=== PATIENT | female | born 1935 | race Caucasian/White ===

== ENCOUNTER → 2021-04-27 11:19 | Outpatient (CLI) | payer MEDICARE, SELFPAY ==
--- NOTE | 2021-04-27 11:27 | DI.MRI.S_ITS ---
PROCEDURE: MRFOOT LT WO CON INDICATIONS: LEFT FOOT PAIN TECHNIQUE: Noncontrast sagittal T1 spin echo and T2 fast spin echo with fat saturation, long-axis T1 spin echo and T2 fast spin echo with fat saturation, short-axis T1 spin echo and T2 fast spin echo with fat saturation through the forefoot. COMPARISON: None. FINDINGS: Image quality: Excellent. Bones and joints: A 1.1 x 1.6 cm T2 hyperintense/T1 hypointense lesion is seen within the proximal aspect of the 1st metatarsal, which may reflect an intraosseous ganglion or fibrocystic change. Mild hallux valgus with osteophytosis and joint space loss. No bone marrow contusions or stress fractures. The sesamoid bones appear in expected positions, without internal edema. 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 Soft tissues: The visualized plantar foot muscles demonstrate normal signal and bulk. T2 hyperintense signal surrounds the flexor hallucis longus tendon, concerning for tenosynovitis. The distal insertions of the peroneus brevis and longus tendons appear intact. The principal Lisfranc ligament appears intact. T2 hyperintense signal is seen between the 1st and 2nd metatarsal bases, which may reflect bursitis. Sagittal images demonstrate no evidence for plantar plate tears. IMPRESSION: 1. 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 2. Fluid signal interposed between the 1st and 2nd metatarsal bases, which may reflect bursitis 3. Cystic lesion in the proximal aspect of the 1st metatarsal bone, which may reflect an intraosseous ganglion or fibrocystic change. 4. Tenosynovitis of the flexor hallucis longus tendon. Dictated by: Galen Garsia M.D. on 04/27/2021 at 12:17 Approved by: Galen Garsia M.D. on 04/27/2021 at 12:53
== END ==
PROVIDERS: PCP Family Medicine; Referring Provider Podiatrist; Visit Provider Podiatrist
DX: M65.872 Other synovitis and tenosynovitis, left ankle and foot; M19.072 Primary osteoarthritis, left ankle and foot; M76.822 Posterior tibial tendinitis, left leg
CPT/HCPCS: 73718

== ENCOUNTER → 2023-06-26 14:40 | Outpatient (CLI) | payer MEDICARE, SELFPAY ==
--- NOTE | 2023-06-26 14:45 | DI.ECHO.S_ITS ---
[facility]+ [facility] +---------+ : : [address] : : : : [id number] : : : : Phone: [phone] Echocardiogram Report + + :Name: TROY QUIROZ Study Date: 06/26/2023 Height: 62 in : :[facility] ReadingLocation: Weight: 146 lb : : Gender: Female BSA: 1.7 m2 : :: 1935 Age: 88 yrs BP: 136/79 mmHg: :Reason For Study: MURMUR, EKG RESULTS : :Ordering Physician: Jose MCCULLOUGHformed By: Brianne Roger : :Referring: VITO MCCULLOUGH : + + Interpretation Summary The left ventricle is normal in size and wall thickness. The ejection fraction is estimated to be 60-65%. There is moderate aortic stenosis. The peak aortic velocity is 2.8 m/sec. The calculated aortic valve area is 0.85 cm2. There is moderate mitral annular calcification. The mitral valve mean gradient is 4.8 mmHg. There is mild mitral regurgitation. Procedure: A two-dimensional transthoracic echocardiogram with color flow and Doppler was performed. The study quality was technically adequate. There is no prior echocardiogram noted for this patient. The patient was in sinus rhythm with heart rates between 72-88 bpm during the exam. Left Ventricle: The left ventricle is normal in size and wall thickness. The ejection fraction is estimated to be 60-65%. There are no focal wall motion abnormalities. Right Ventricle: The right ventricle is normal in size and function. Atria: The left atrial size is normal. Right atrial size is normal. There is no Doppler evidence for an interatrial shunt. Mitral Valve: There is moderate mitral annular calcification. The mitral valve leaflets are moderately calcified. The mitral valve mean gradient is 4.8 mmHg. There is mild mitral regurgitation. There are multiple regurgitant jets present. Aortic Valve: The aortic valve is trileaflet. The aortic valve is moderately calcified. There is moderate aortic stenosis. The peak aortic velocity is 2.8 m/sec. The aortic valve mean gradient is 19 mmHg. The calculated aortic valve area is 0.85 cm2. No aortic regurgitation is present. Tricuspid Valve: The tricuspid valve is normal in structure and function. No tricuspid regurgitation. Pulmonary artery pressures cannot be estimated because of the lack of a measurable TR jet velocity. Pulmonic Valve: The pulmonic valve leaflets are thin and pliable; valve motion is normal. There is mild pulmonic regurgitation. Great Vessels: The aortic root is normal size. The dimensions of the ascending aorta are normal. The IVC is of normal diameter and collapses greater than 50% with a sniff. This suggests a low right atrial pressure of 3 mm Hg. Pericardium/ Pleura There is no pericardial effusion. There is no pleural effusion. MMode/2D Measurements & Calculations LVIDd: 3.8 cm LVOT diam: 1.9 cm LVIDs: 2.8 cm Ao root diam: 2.8 cm FS: 27.2 % asc Aorta Diam: 2.8 cm IVSd: 0.98 cm Ao Arch Diam (Prox Trans): 2.8 cm LVPWd: 0.86 cm LV chiang. diameter/BSA (cm/m^2): 2.3 LV sys. diameter/BSA (cm/m^2): 1.6 LA A2 area: 16.6 cm2 RA long axis: 4.6 cm LA A4 area: 15.2 cm2 RA area: 12.4 cm2 LA length (vol): 4.8 cm RA vol: 28.0 ml LA vol: 44.6 ml RA : 16.7 ml/m2 LA vol index: 26.7 ml/m2 IVC diam: 1.1 cm RVD1 (basal): 3.1 cm RVD2 (mid): 2.6 cm TAPSE: 2.0 cm Doppler Measurements & Calculations Ao V2 max: 282.7 cm/sec LVOT Max Michael: 85.2 cm/sec Ao V2 mean: 202.4 cm/sec LV V1 max P.9 mmHg Ao max P.6 mmHg LV V1 VTI: 19.0 cm Ao mean P.2 mmHg VERONICA(I,D): 0.89 cm2 Ao V2 VTI: 59.6 cm VERONICA(V,D): 0.85 cm2 sev ratio: 0.32 VERONICA indexed to BSA (cm^2/m^2): 0.53 MV E max michael: 125.6 cm/sec PA V2 max: 91.3 cm/sec MV A max michael: 127.2 cm/sec PA V2 mean: 68.2 cm/sec MV E/A: 0.99 PA mean P.0 mmHg Med Peak E' Michael: 5.3 cm/sec PA pr(Accel): 44.7 mmHg E/E' med: 23.6 Lat Peak E' Michael: 5.9 cm/sec E/E' lat: 21.3 E/e' average: 22.4 MV dec time: 0.37 sec MVA(VTI): 1.1 cm2 MV V2 mean: 99.4 cm/sec SV(LVOT): 53.3 ml MV mean P.8 mmHg MV V2 VTI: 50.4 cm Electronically signed by: Cristina Hernandez on Reading Physician:06/26/2023 07:59 PM
== END ==
PROVIDERS: PCP Family Medicine; Referring Provider Family Medicine; Visit Provider Family Medicine
DX: R01.1 Cardiac murmur, unspecified (principal); I08.0 Rheumatic disorders of both mitral and aortic valves
CPT/HCPCS: 93306

== ENCOUNTER 2023-08-03 16:27 | Observation (INO) | payer MEDICARE, SELFPAY ==
[2023-08-03] VITALS (11 sets, daily range): BP systolic 139–207; BP diastolic 64–99; PULSE 67–91; RESP 11–49; TEMP 36.1–36.7; O2SAT 91–100; BMI 25.9
--- NOTE | 2023-08-03 16:47 | DI.RAD.S_ITS ---
PROCEDURE: XR CHEST 1V INDICATIONS: chest pain TECHNIQUE: One view of the chest was acquired. COMPARISON: None. FINDINGS: Surgical changes and devices: None. Lungs and pleura: Lungs are clear. No pleural effusions or pneumothorax. Mediastinum: Mediastinal contours appear normal. Heart size is normal. Bones and chest wall: No suspicious bony lesions. Overlying soft tissues appear unremarkable. IMPRESSION: No acute cardiopulmonary abnormality is seen. Dictated by: Gildardo Kim M.D. on 08/03/2023 at 17:15 Approved by: Gildardo Kim M.D. on 08/03/2023 at 17:15
--- NOTE | 2023-08-03 16:55 | PC.NURSE ---
This RN was informed by patient that they took 650mg Aspirin at 1pm today. Provider informed. This medication was held per provider order.
--- NOTE | 2023-08-03 16:55 | ED.NEUROSD ---
HPI - Neuro Symptoms/Deficit General Chief Complaint: Neuro Symptoms/Deficit Stated Complaint: thinks has had some tia's Time Seen by Provider: 08/03/23 16:37 Source: patient and family Mode of arrival: Ambulatory History of Present Illness HPI Narrative: Patient is a 88-year-old female history of hypothyroid, diabetes presenting today with difficulty speaking. states that last known well was around 10:00 a.m. he had a normal breakfast he went outside came back in at noon and noted that she was having some trouble getting words out. It lasted for about 30 minutes to an hour and then self-resolved. No numbness tingling or weakness. 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 She reports that she had an episode very similar to this 2 weeks ago where she had word trouble finding. She was on the phone at that time and at lasted for about half a day and then resolved. They are here today because this is the 2nd event. On Anticoagulants: No Related Data Home Medications Medication Instructions Recorded Confirmed levothyroxine 112 mcg tablet 112 mcg PO DAILY 06/05/23 08/03/23 losartan 50 mg tablet 50 mg PO DAILY 06/05/23 08/03/23 metformin 500 mg tablet 500 mg PO BID 06/05/23 08/03/23 Previous Rx's Medication Instructions Recorded hydrochlorothiazide 12.5 mg tablet 12.5 mg PO DAILY #90 tabs 06/05/23 Allergies Allergy/AdvReac Type Severity Reaction Status Date / Time Penicillins Allergy Severe Anaphylaxis Verified 08/03/23 16:42 codeine AdvReac Severe GI upset, Verified 08/03/23 16:42 nausea, vomiting Review of Systems Hematologic/Lymphatic On Anticoagulants: No Patient History Social History household members: spouse Smoking Status: Never smoker alcohol intake: current substance use type: does not use Smoking Status: Never smoker alcohol intake frequency: a few times a month Substance Use Type: does not use Exam Initial Vital Signs Initial Vital Signs: Vital Signs Pulse Rate 83 08/03/23 16:36 Respiratory Rate 18 08/03/23 16:36 Pulse Oximetry 100 08/03/23 16:36 GENERAL: Very pleasant 80-year-old female HEENT: Head atraumatic,EOMI, pupils reactive, left-sided facial droop CARDIOVASCULAR: Regular rate and rhythm without murmurs, rubs or gallops. RESPIRATORY: Breath sounds equal bilaterally, no wheezes rales or rhonchi. ABDOMEN: Soft, nontender. Normoactive bowel sounds all 4 quadrants. No guarding or rebound. EXTREMITIES: Normal range of motion, no clubbing or edema. Neurovascularly intact NEUROLOGICAL: Alert and oriented x4.Normal gait and speech. Cranial nerves II through XII grossly intact. Good xencvz-[id number]-dunr, good pcze-eu-ldkr, strength equal bilaterally, no dysarthria or aphasia, sensation in tact to soft touch bilaterally, no visual changes, left facial droop SKIN: Warm, dry, no laceration, no petechiae, no rashes or lesions. Scores NIH Stroke Scale Level of Conciousness: Alert, keenly responsive Ask month/age: Answers both questions correctly. Open/close eyes, close hand: Performs both tasks correctly Best gaze horizontal: Normal Visual hood: No visual loss Facial palsy: Minor paralysis, flattened nasolabial fold, asymmetry on smiling Left arm drift: No drift for full 10 sec Right arm drift: No drift for full 10 sec Left leg drift: No drift for full 5 sec Right leg drift: No drift for full 5 sec Limb ataxia: Absent Sensory on face/arms/legs: Normal, no sensory loss Best language: No aphasia, normal Dysarthria: Normal Extinction or inattention: No abnormality Total NIH Stroke scale score: 1 Course Orders Ordered: Acetaminophen (Acetaminophen 650 Mg Supp) 650 mg SD Q6HR PRN PRN Reason: Fever Aspirin (Aspirin Ec 81 Mg Tablet) 81 mg PO DAILY [facility] Atorvastatin Calcium (Atorvastatin 20 Mg Tablet) 80 mg PO BEDTIME [facility] Last Admin: 08/03/23 23:38 Dose: 80 mg Documented By: Enoxaparin Sodium (Enoxaparin 40 Mg/0.4 Ml Syringe) 40 mg SUBCUT DAILY [facility] Dextrose (D10w) 100 mls @ 1,200 mls/hr IV PRN PRN PRN Reason: Hypoglycemia Insulin Human Lispro (Insulin Lispro 100 Unit/Ml 3ml Vial) 0 unit SUBCUT ACHS [facility]; Protocol Last Admin: 08/03/23 22:36 Dose: Not Given Documented By: Labetalol HCl (Labetalol 20 Mg/4 Ml Syringe) 5 mg IV Q4HR PRN PRN Reason: Hypertension Lorazepam (Lorazepam 1 Mg Tablet) 1 mg PO PRN PRN PRN Reason: MRI Naloxone HCl (Naloxone 0.4 Mg/Ml Vial) 0.2 mg IV Q2MIN PRN PRN Reason: Opiate Reversal Ondansetron HCl (Ondansetron 4 Mg/2 Ml Inj) 4 mg IV Q8HR PRN PRN Reason: Nausea And Vomiting Discontinued Medications Aspirin (Aspirin 81 Mg Chew Tab) 324 mg PO NOW ONE Stop: 08/03/23 16:47 Last Admin: 08/03/23 16:54 Dose: Not Given Documented By: RB Vital Signs Vital signs: Vital Signs - 8 hr 08/03/23 16:36 08/03/23 16:37 Temperature 98.1 F Pulse Rate 83 91 H Respiratory Rate 18 18 Blood Pressure 207/73 H Pulse Oximetry 100 100 Oxygen Delivery Method Room Air MDM - Neuro Symptoms/Deficit Lab Data 08/03/23 20:27 08/03/23 20:27 Labs: Lab Results 08/03/23 Range/Units 16:31 WBC 8.8 (4.5-11.0) X10^3/uL RBC 4.35 (4.0-5.2) X10^6/uL Hgb 12.5 (12.0-16.0) g/dL Hct 38.2 (36-46) % MCV 87.9 (80-100) fL MCH 28.8 (26-34) PG MCHC 32.8 (30-36) % RDW 13.2 (11.6-14.8) % Plt Count 373 (150-400) X10^3/uL Neut % (Auto) 56.8 (50-75) % Lymph % (Auto) 23.7 L (25-40) % Bibb % (Auto) 12.6 (3-14) % Eos % (Auto) 5.7 H (2-4) % Baso % (Auto) 1.2 (0-2) % Neut # (Auto) 5000 (5396-3405) /uL Lymph # (Auto) 2100 (1949-1449) /uL Bibb # (Auto) 1100 H (0-900) /uL Eos # (Auto) 500 H (0-450) /uL Baso # (Auto) 100 (0-100) /uL Sodium 137 (137-145) mmol/L Potassium 3.8 (3.4-5.1) mmol/L Chloride 101 (98-107) mmol/L Carbon Dioxide 28 (22-32) mmol/L BUN 19 H (7-17) mg/dL Creatinine 0.71 (0.52-1.04) mg/dL Estimated GFR > 60 (>60) mL/min BUN/Creatinine Ratio 26.8 H (6-22) Glucose 149 H (80-110) mg/dL Calcium 10.0 (8.4-10.2) mg/dL Total Bilirubin 0.4 (0.2-1.3) mg/dL AST 41 H (14-36) IU/L ALT 43 H (<35) IU/L Alkaline Phosphatase 68 (38-126) U/L Total Creatine Kinase 40 (30-135) U/L Troponin I < 0.012 (0.01-0.034) ng/mL Total Protein 7.6 (6.3-8.2) g/dL Albumin 4.0 (3.5-5.0) g/dL Globulin 3.6 (1.7-4.1) g/dL Albumin/Globulin Ratio 1.1 (1.0-2.8) Lipase 197 (23-300) U/L Imaging Data CT scan - head: Radiologist's Impression: PROCEDURE: CT HEAD/BRAIN WO CON INDICATIONS: word trouble now resolved TECHNIQUE: Noncontrast 4.5 mm thick angled axial sections acquired from the foramen magnum to the vertex, with coronal and sagittal reformats. For radiation dose reduction, the following was used: automated exposure control, adjustment of mA and/or kV according to patient size. COMPARISON: None. FINDINGS: Image quality: Diagnostic. CSF spaces: Basal cisterns are patent. No extra-axial fluid collections. The ventricles are symmetric in size and shape. Brain: No intracranial bleeds or masses. There is cerebral volume loss for age, with resultant ventricular and sulcal prominence. There are periventricular and deep white matter chronic small vessel ischemic changes. There is intracranial internal carotid artery atherosclerosis. Skull and face: Calvarium and visualized facial bones appear intact, without suspicious lesions. Lens replacements. Sinuses: Visualized sinuses and mastoids are clear. IMPRESSION: No acute intracranial pathology. Dictated by: Gildardo Kim M.D. on 08/03/2023 at 18:22 CTA - brain/neck: Radiologist's Impression: PROCEDURE: CT ANGIO HEAD AND NECK INDICATIONS: word trouble now resolved TECHNIQUE: After the administration of intravenous contrast, 1 mm thick sections acquired from the aortic arch through the [place] of [place]. 3-dimensional liwewxt-vyzrekfik-qpympghkyr (MIP) and/or volume rendering reformats were acquired of the central intracranial vasculature and neck separately. For radiation dose reduction, the following was used: automated exposure control, adjustment of mA and/or kV according to patient size. COMPARISON: None. FINDINGS: Image quality: Diagnostic. BRAIN: Please refer to separately dictated CT of the head. HEAD CT ANGIOGRAPHY: Anterior circulation: Intracranial internal carotid arteries are normal in size and flow with atherosclerotic calcifications. The flow within the paired anterior cerebral arteries is normal and symmetric. The flow within the middle cerebral arteries is normal and symmetric. The anterior communicating artery is seen. No aneurysms are seen. Posterior circulation: Visualized portions of the vertebral arteries demonstrate normal caliber, and join to form a normal appearing basilar artery. Flow within the posterior cerebral arteries is normal and symmetric. No aneurysms are seen. NECK CT ANGIOGRAPHY: Carotid system: The great vessels demonstrate a conventional anatomy as they arise from the aortic arch. The origins of the common carotid arteries appear patent. The common carotid arteries demonstrate normal caliber with significantly tortuous course is approximately. Atherosclerotic calcifications of the bilateral carotid bifurcations with approximately 50% stenosis of the right proximal ICA and less than 50% stenosis of the left proximal ICA.. The internal carotid arteries demonstrate normal calibers and courses. Posterior circulation: High-grade stenosis of the origin of left vertebral artery. Normal appearance of the origin of the right vertebral artery.. The more superior extracranial portions of both vertebral arteries also demonstrate normal courses and calibers. They join to form a normal appearing basilar artery. Soft tissues: Visualized neck soft tissues demonstrate no suspicious abnormalities. Bones: No suspicious bony lesions. Degenerative changes of the spine. Visualized cervical spine appears normally aligned. IMPRESSION: No significant intracranial arterial abnormality is seen. Atherosclerotic vascular calcifications at the bilateral carotid bulbs with approximately 50% stenosis of the right proximal ICA and less than 50% stenosis of the left proximal ICA. High-grade stenosis at the left vertebral artery origin. Any quantitative measurements of stenosis were performed using NASCET criteria. Dictated by: Gildardo Kim M.D. on 08/03/2023 at 18:23 Chest x-ray: Radiologist's Impression: PROCEDURE: XR CHEST 1V INDICATIONS: chest pain TECHNIQUE: One view of the chest was acquired. COMPARISON: None. FINDINGS: Surgical changes and devices: None. Lungs and pleura: Lungs are clear. No pleural effusions or pneumothorax. Mediastinum: Mediastinal contours appear normal. Heart size is normal. Bones and chest wall: No suspicious bony lesions. Overlying soft tissues appear unremarkable. IMPRESSION: No acute cardiopulmonary abnormality is seen. Dictated by: Gildardo Kim M.D. on 08/03/2023 at 17:15 ECG Data Interpretation: Normal sinus rhythm rate 79 SD interval 1 to see a QRS [address] changes MDM Narrative Medical decision making narrative: Patient 88-year-old female history of hypertension hypothyroid diabetes presents today with a 2nd event of probable TIA. It sounds as though she would speech difficulty 2 weeks ago that for half a day and resolved. She had 2nd episode today which again resolved. 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 He has not a tPA candidate symptoms have resolved. Blood work has been reviewed without clinical significant abnormalities Imaging pending Briefly discussed case with Dr. Maldonado in regards to admission waiting for CT imaging to be sure no large obvious problems Dr. Navarro aware Discharge Plan Departure Patient Disposition: Admitted as Observation Clinical Impression: Transient cerebral ischemia Admit Date/Time: 08/03/23 18:54 Admit Provider: Jaime Maldonado
[2023-08-03 17:01] LABS: Add Manual Diff / Slide Review NO; Basophils Absolute Auto 100 /uL (0-100); Basophils Percent Auto 1.2 % (0-2); Eosinophils Absolute Auto 500 /uL (0-450); Eosinophils Percent Auto 5.7 % (2-4); Hematocrit 38.2 % (36-46); Hemoglobin 12.5 g/dL (12.0-16.0); Lymphocytes Absolute Auto 2100 /uL (1100-4500); Lymphocytes Percent Auto 23.7 % (25-40); Mean Corpuscular HGB Conc 32.8 % (30-36); Mean Corpuscular Hemoglobin 28.8 PG (26-34); Mean Corpuscular Volume 87.9 fL (80-100); Monocytes Absolute Auto 1100 /uL (0-900); Monocytes Percent Auto 12.6 % (3-14); Neutrophils Absolute Auto 5000 /uL (1500-7000); Neutrophils Percent Auto 56.8 % (50-75); Platelet Count 373 X10^3/uL (150-400); Red Blood Cell Count 4.35 X10^6/uL (4.0-5.2); Red Cell Distribution Width 13.2 % (11.6-14.8); White Blood Cell Count 8.8 X10^3/uL (4.5-11.0)
--- NOTE | 2023-08-03 17:07 | DI.CT.S_ITS ---
PROCEDURE: CT HEAD/BRAIN WO CON INDICATIONS: word trouble now resolved TECHNIQUE: Noncontrast 4.5 mm thick angled axial sections acquired from the foramen magnum to the vertex, with coronal and sagittal reformats. For radiation dose reduction, the following was used: automated exposure control, adjustment of mA and/or kV according to patient size. COMPARISON: None. FINDINGS: Image quality: Diagnostic. CSF spaces: Basal cisterns are patent. No extra-axial fluid collections. The ventricles are symmetric in size and shape. Brain: No intracranial bleeds or masses. There is cerebral volume loss for age, with resultant ventricular and sulcal prominence. There are periventricular and deep white matter chronic small vessel ischemic changes. There is intracranial internal carotid artery atherosclerosis. Skull and face: Calvarium and visualized facial bones appear intact, without suspicious lesions. Lens replacements. Sinuses: Visualized sinuses and mastoids are clear. IMPRESSION: No acute intracranial pathology. Dictated by: Gildardo Kim M.D. on 08/03/2023 at 18:22 Approved by: Gildardo Kim M.D. on 08/03/2023 at 18:22
--- NOTE | 2023-08-03 17:07 | DI.CT.S_ITS ---
PROCEDURE: CT ANGIO HEAD AND NECK INDICATIONS: word trouble now resolved TECHNIQUE: After the administration of intravenous contrast, 1 mm thick sections acquired from the aortic arch through the [place] of [place]. 3-dimensional ubohzeg-dhtdtgkqd-mdotqugnzr (MIP) and/or volume rendering reformats were acquired of the central intracranial vasculature and neck separately. For radiation dose reduction, the following was used: automated exposure control, adjustment of mA and/or kV according to patient size. COMPARISON: None. FINDINGS: Image quality: Diagnostic. BRAIN: Please refer to separately dictated CT of the head. HEAD CT ANGIOGRAPHY: Anterior circulation: Intracranial internal carotid arteries are normal in size and flow with atherosclerotic calcifications. The flow within the paired anterior cerebral arteries is normal and symmetric. The flow within the middle cerebral arteries is normal and symmetric. The anterior communicating artery is seen. No aneurysms are seen. Posterior circulation: Visualized portions of the vertebral arteries demonstrate normal caliber, and join to form a normal appearing basilar artery. Flow within the posterior cerebral arteries is normal and symmetric. No aneurysms are seen. NECK CT ANGIOGRAPHY: Carotid system: The great vessels demonstrate a conventional anatomy as they arise from the aortic arch. The origins of the common carotid arteries appear patent. The common carotid arteries demonstrate normal caliber with significantly tortuous course is approximately. Atherosclerotic calcifications of the bilateral carotid bifurcations with approximately 50% stenosis of the right proximal ICA and less than 50% stenosis of the left proximal ICA.. The internal carotid arteries demonstrate normal calibers and courses. Posterior circulation: High-grade stenosis of the origin of left vertebral artery. Normal appearance of the origin of the right vertebral artery.. The more superior extracranial portions of both vertebral arteries also demonstrate normal courses and calibers. They join to form a normal appearing basilar artery. Soft tissues: Visualized neck soft tissues demonstrate no suspicious abnormalities. Bones: No suspicious bony lesions. Degenerative changes of the spine. Visualized cervical spine appears normally aligned. IMPRESSION: No significant intracranial arterial abnormality is seen. Atherosclerotic vascular calcifications at the bilateral carotid bulbs with approximately 50% stenosis of the right proximal ICA and less than 50% stenosis of the left proximal ICA. High-grade stenosis at the left vertebral artery origin. Any quantitative measurements of stenosis were performed using NASCET criteria. Dictated by: Gildardo Kim M.D. on 08/03/2023 at 18:23 Approved by: Gildardo Kim M.D. on 08/03/2023 at 18:28
[2023-08-03 17:24] LABS: Alanine Aminotransferase 43 IU/L (<35); Albumin Globulin Ratio 1.1 (1.0-2.8); Alkaline Phosphatase 68 U/L (38-126); Aspartate Aminotransferase 41 IU/L (14-36); BUN Creatinine Ratio 26.8 (6-22); Bilirubin Total 0.4 mg/dL (0.2-1.3); Blood Urea Nitrogen 19 mg/dL (7-17); Carbon Dioxide 28 mmol/L (22-32); Chloride 101 mmol/L (98-107); Creatine Kinase 40 U/L (30-135); Estimated Glomerular Filt Rate > 60 mL/min (>60); Globulin 3.6 g/dL (1.7-4.1); Glucose 149 mg/dL (80-110); HEMOLYSIS < 15 (0-50); Lipase 197 U/L (23-300); Potassium 3.8 mmol/L (3.4-5.1); Sodium 137 mmol/L (137-145); Total Protein 7.6 g/dL (6.3-8.2)
[2023-08-03 17:35] LABS: Troponin I < 0.012 ng/mL (0.01-0.034)
--- NOTE | 2023-08-03 19:44 | DI.MRI.S_ITS ---
PROCEDURE: MR HEAD/BRAIN WO CON INDICATIONS: TIA, aphasia TECHNIQUE: Noncontrast axial T1 spin echo, axial T2 fast spin echo, sagittal and axial FLAIR, coronal T2 fast spin echo, axial gradient echo, axial diffusion and ADC through the brain. COMPARISON: [facility], CT, CT ANGIO HEAD AND NECK, 08/03/2023, 17:16. FINDINGS: Image quality: Diagnostic, but there is mild motion artifact CSF spaces: Basal cisterns are patent. Lateral ventricles are symmetric. Volume: Volume loss. Periventricular white matter signal abnormality most commonly seen with small vessel disease. These findings are jmft-vj-ynuhatoc Brain: No acute diffusion restriction. No hematoma is identified. 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 Craniofacial structures: No displaced fracture. Sinuses are clear. Orbits are intact. IMPRESSION: No acute infarct or hematoma identified. Dictated by: Thom Diallo M.D. on 08/04/2023 at 14:02 Approved by: Thom Diallo M.D. on 08/04/2023 at 14:04
--- NOTE | 2023-08-03 20:31 | PM.HP.1 ---
History of Present Illness History of Present Illness Date Patient Seen: 08/03/23 Date of Onset of Symptoms: 08/03/23 Chief complaint: thinks has had some tia's Narrative: States that today around 10am she started to have difficulty speaking, she wanted to talk about her clothes and how she could adjust the seam to have it fit better but could not get the words coming out to make sense. [place] that her thinking was clear, no focal deficits, no headache, no vision changes. This lasted about 30 minutes to an hour then resolved. She presented today as she had a similiar episode about 2 weeks ago that was worse, lasted at least an hour before resolving, and felt that with 2 episodes she may have had a TIA. Her son had a stroke at 42 yrs old, maternal aunts had strokes and thus she expresses that she is aware of the signs. Notes that she had anxiety associated with MRI and claustrophobia. 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 Endorses taking all medications as prescribed. Feels that her BP and BG are well controlled at home. Expresses anxiety and asks many good questions regarding statin therapy and benefit. Evaluated in ED, found to have NIHSS of 1 with chronic left facial droop. ASA 325mg administered. CT/CTA head neck without acute process. [facility] Social History household members: spouse Smoking Status: Never smoker alcohol intake: current substance use type: does not use Meds Home Medications and Allergies Home Medications Medication Instructions Recorded Confirmed Type hydrochlorothiazide 12.5 mg tablet 12.5 mg PO DAILY #90 tabs 06/05/23 08/03/23 Rx levothyroxine 112 mcg tablet 112 mcg PO DAILY 06/05/23 08/03/23 History losartan 50 mg tablet 50 mg PO DAILY 06/05/23 08/03/23 History metformin 500 mg tablet 500 mg PO BID 06/05/23 08/03/23 History Allergies Allergy/AdvReac Type Severity Reaction Status Date / Time Penicillins Allergy Severe Anaphylaxis Verified 08/03/23 16:42 codeine AdvReac Severe GI upset, Verified 08/03/23 16:42 nausea, vomiting Review of Systems Review of Systems ROS: Yes All systems reviewed with the patient and are negative except as otherwise documented Exam Vital Signs (past 8 hours): - 08/03/23 16:36 08/03/23 16:37 08/03/23 17:00 Temperature 98.1 F Pulse Rate 83 91 H 82 Respiratory Rate 18 18 31 H Blood Pressure 207/73 H Pulse Oximetry 100 100 95 Oxygen Delivery Method Room Air 08/03/23 17:01 08/03/23 17:01 08/03/23 17:30 Temperature Pulse Rate 81 69 Respiratory Rate 49 H 32 H Blood Pressure 161/99 H Pulse Oximetry 98 98 Oxygen Delivery Method 08/03/23 17:31 08/03/23 17:31 08/03/23 18:17 Temperature Pulse Rate 70 74 Respiratory Rate 25 H Blood Pressure 139/64 Pulse Oximetry 99 91 Oxygen Delivery Method 08/03/23 18:30 08/03/23 18:31 08/03/23 18:31 Temperature Pulse Rate 67 67 Respiratory Rate 12 Blood Pressure 149/70 H Pulse Oximetry 99 99 Oxygen Delivery Method 08/03/23 19:38 08/03/23 19:38 Temperature Pulse Rate 67 Respiratory Rate 11 L Blood Pressure 155/74 H Pulse Oximetry 98 Oxygen Delivery Method Oxygen Delivery Method Room Air Narrative Exam Narrative: Exam using audio and visual device with stethoscope. Const General: comfortable and No acute distress HENMA Head: normal to inspection Other: Left facial droop Eyes General: appearance normal, both eyes and all related structures Chest Chest: normal inspection of the chest Resp Effort & Inspection: normal respiratory effort Auscultation: clear to auscultation bilaterally Cardio Rate: regular rate Rhythm: regular rhythm Heart Sounds: murmur GI Inspection: normal to inspection Auscultation: normal bowel sounds Skin General: no rashes or lesions noted Neuro General: patient alert and patient oriented x3 Extrem General: normal to inspection Psych Appearance: grossly normal Objective ECG Impression: Ordered and Pending Imaging CT scan - head: My impression: NAP Radiologist's impression: CT IMPRESSION: No acute intracranial pathology. Dictated by: Gildardo Kim M.D. on 08/03/2023 at 18:22 Approved by: Gildardo Kim M.D. on 08/03/2023 at 18:22 CTA IMPRESSION: No significant intracranial arterial abnormality is seen. Atherosclerotic vascular calcifications at the bilateral carotid bulbs with approximately 50% stenosis of the right proximal ICA and less than 50% stenosis of the left proximal ICA. High-grade stenosis at the left vertebral artery origin. Any quantitative measurements of stenosis were performed using NASCET criteria. Dictated by: Gildardo Kim M.D. on 08/03/2023 at 18:23 Approved by: Gildardo Kim M.D. on 08/03/2023 at 18:28 Chest x-ray: My impression: NAP Radiologist's impression: IMPRESSION: No acute cardiopulmonary abnormality is seen. Dictated by: Gildardo Kim M.D. on 08/03/2023 at 17:15 Approved by: Gildardo Kim M.D. on 08/03/2023 at 17:15 Labs 08/03/23 20:27 08/03/23 20:27 Labs: Laboratory Results - last 24 hr 08/03/23 16:31 WBC 8.8 RBC 4.35 Hgb 12.5 Hct 38.2 MCV 87.9 MCH 28.8 MCHC 32.8 RDW 13.2 Plt Count 373 Neut % (Auto) 56.8 Lymph % (Auto) 23.7 L Villalba % (Auto) 12.6 Eos % (Auto) 5.7 H Baso % (Auto) 1.2 Neut # (Auto) 5000 Lymph # (Auto) 2100 Villalba # (Auto) 1100 H Eos # (Auto) 500 H Baso # (Auto) 100 Sodium 137 Potassium 3.8 Chloride 101 Carbon Dioxide 28 BUN 19 H Creatinine 0.71 Estimated GFR > 60 BUN/Creatinine Ratio 26.8 H Glucose 149 H Calcium 10.0 Total Bilirubin 0.4 AST 41 H ALT 43 H Alkaline Phosphatase 68 Total Creatine Kinase 40 Troponin I < 0.012 Total Protein 7.6 Albumin 4.0 Globulin 3.6 Albumin/Globulin Ratio 1.1 Lipase 197 Assessment & Plan Assessment and plan (1) Aphasia: Status: Acute Plan: Concern for TIA, risk factors HTN, DMII Observation for TIA rule out CVA Head CT/CTA without acute process Troponin negative, EKG pending MRI pending, Ativan pre-treatment given known history of MRI anxiety No indication for tPA given resolved symptoms CVA protocol, ASA, Permissive HTN, serial neuro checks, cardiac monitoring no indication for ECHO, statin therapy with lipid check, diabetic control with A1c pending, NPO until swallow screen, ancillary support with PT/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 (2) Diabetes mellitus: Problem details: metformin 500 BID, a1c 8.4 2022 no eye complications Qualifiers: Diabetes mellitus complication detail: with neuropathic arthropathy Diabetes mellitus complication status: with diabetic arthropathy Diabetes mellitus intermediate frame tender insulin use: without intermediate frame tender use Diabetes mellitus type: type 2 Qualified Code(s): E11.610 - Type 2 diabetes mellitus with diabetic neuropathic arthropathy Status: Chronic Plan: with hyperglycemia Hold home Metformin, NPO as above Start SSI Plan Chronic transaminase elevation, AST/ALT 41/43, improved from baseline 65/60 last recorded 07/09 Hypothyroidism, TSH pending, hold home Synthroid while NPO HTN, essential, hold home HCTZ 12.5, Losartan 50mg for permissive HTN as above Moderate aortic stenosis, velocity peak 2.8, calculated aortic valve area 0.85 cm2 on ECHO 06/26/2023 with LVEF 60-65% Moderate 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 Open/close eyes, close hand: Performs both tasks correctly Best gaze horizontal: Normal Visual hood: No visual loss Facial palsy: Minor paralysis, flattened nasolabial fold, asymmetry on smiling (chronic) Left arm drift: No drift for full 10 sec Right arm drift: No drift for full 10 sec Left leg drift: No drift for full 5 sec Right leg drift: No drift for full 5 sec Limb ataxia: Absent Sensory on face/arms/legs: Normal, no sensory loss Best language: No aphasia, normal Dysarthria: Normal Extinction or inattention: No abnormality Total NIH Stroke scale score: 1 CHADS-VASc Congestive heart failure: no Hypertension: yes Age 75 years or older: yes Diabetes mellitus: yes Stroke, TIA, or TE: no Vascular disease: no Age 65 to 74 years: no Sex category (female): Female CHADS-VASc Score: 5 Quality Stroke Contraindication Not Initiating IV-Tpa: Not indicated Onset of Symptoms Date: 08/03/23 VTE Deep Vein Thrombosis/Pulmonary Embolism Present on Admission: No
[2023-08-03 20:38] LABS: Add Manual Diff / Slide Review NO; Basophils Absolute Auto 100 /uL (0-100); Basophils Percent Auto 1.5 % (0-2); Eosinophils Absolute Auto 500 /uL (0-450); Eosinophils Percent Auto 5.9 % (2-4); Hematocrit 37.4 % (36-46); Hemoglobin 12.4 g/dL (12.0-16.0); Lymphocytes Absolute Auto 2200 /uL (1100-4500); Lymphocytes Percent Auto 27.8 % (25-40); Mean Corpuscular HGB Conc 33.1 % (30-36); Mean Corpuscular Volume 87.4 fL (80-100); Monocytes Absolute Auto 900 /uL (0-900); Monocytes Percent Auto 11.1 % (3-14); Neutrophils Absolute Auto 4200 /uL (1500-7000); Neutrophils Percent Auto 53.7 % (50-75); Platelet Count 374 X10^3/uL (150-400); Red Blood Cell Count 4.28 X10^6/uL (4.0-5.2); Red Cell Distribution Width 13.6 % (11.6-14.8); White Blood Cell Count 7.9 X10^3/uL (4.5-11.0)
[2023-08-03 20:51] LABS: Cholesterol 200 mg/dL (140-199); HDL Cholesterol 39 mg/dL (40-60); LDL Cholesterol Calculated 130 mg/dL (<100); Triglycerides 156 mg/dL (35-150)
[2023-08-03 20:52] LABS: BUN Creatinine Ratio 24.3 (6-22); Blood Urea Nitrogen 18 mg/dL (7-17); Calcium 9.8 mg/dL (8.4-10.2); Carbon Dioxide 28 mmol/L (22-32); Chloride 103 mmol/L (98-107); Estimated Glomerular Filt Rate > 60 mL/min (>60); Glucose 147 mg/dL (80-110); HEMOLYSIS < 15 (0-50); Potassium 3.7 mmol/L (3.4-5.1); Sodium 138 mmol/L (137-145)
[2023-08-03 21:23] LABS: Thyroid Stimulating Hormone 1.27 uIU/mL (0.47-4.68)
[2023-08-03 22:35] LABS: Hemoglobin A1C% w Est Avg Glu 7.4 % (4.0-6.0)
[2023-08-03] MEDS: ATORVASTATIN 20 MG TABLET 80 MG PO (23:38)
[2023-08-04 00:10] VITALS: BP 146/72; PULSE 64; RESP 16; TEMP 36.7; O2SAT 100
[2023-08-04 04:00] VITALS: BP 139/54; PULSE 81; RESP 16; TEMP 36.4; O2SAT 97
[2023-08-04 08:00] VITALS: BP 128/63; PULSE 66; RESP 16; TEMP 36.2; O2SAT 99
[2023-08-04] MEDS: ASPIRIN EC 81 MG TABLET PO (09:28)
[2023-08-04] MEDS: INSULIN LISPRO 100 UNIT/ML 3ML VIAL SUBCUT ×2 (09:28→12:35)
[2023-08-04] MEDS: ENOXAPARIN 40 MG/0.4 ML SYRINGE SUBCUT (09:28)
--- NOTE | 2023-08-04 10:45 | PT.IIE ---
Current Diagnoses Type 2 diabetes mellitus with diabetic neuropathic arthropathy (08/03/23) Aphasia (08/03/23) Physical Therapy Inpatient Evaluation/Re-Eval M1 PT/OT-IP Prior Functional Status Start: 08/04/23 12:14 Freq: NEEDED Status: Active Protocol: Document 08/04/23 10:45 AB (Rec: 08/04/23 12:26 AB [id number]) Medical Review Prior Functional Status Medical History Reviewed Yes Communication able to make needs known Mobility and Gait pt stated that she was independent with all mobilities and ambulation without AD Social History Household Members spouse Living Arrangements House Number of Floors (Floors) Two Floors Number of Stairs To Enter/Railing? pt stays on main level of the house Home Environment Standard Height Toilet,Tub/ Shower Home Equipment Straight Cane,Hand Held Shower ,Grab Bars In Shower M2 PT-IP Current Condition Start: 08/04/23 12:14 Freq: NEEDED Status: Active Protocol: Document 08/04/23 10:45 AB (Rec: 08/04/23 12:26 AB [id number]) Physical Therapy Current Condition Current Condition Evaluation Date 08/04/23 Treatment Diagnosis TIA; difficulty in walking Onset Date 08/03/23 M3 PT-IP Subjective Start: 08/04/23 12:14 Freq: NEEDED Status: Active Protocol: Document 08/04/23 10:45 AB (Rec: 08/04/23 12:26 AB [id number]) Subjective Physical Therapy Visit Type Type Initial Evaluation Visit Start Time 10:45 Visit Stop Time 11:00 Number of MORTGAGE CONSULTANT Visits 0 Physical Therapy Visit Comments Patient Comments agreeable to do PT Therapy Pain Assessment Pain Present Pain Present Denied Pain M4 PT-IP Mobility and Gait Start: 08/04/23 12:14 Freq: NEEDED Status: Active Protocol: Document 08/04/23 10:45 AB (Rec: 08/04/23 12:26 AB [id number]) PT-Bed Mobility Assessment Supine to Sit Supine to Sit Independent PT-Transfer Assessment Sit to and From Stand Sit to and from Stand Independent Equipment Transfer Assistive Device None,Gait Belt Orthotic/Prosthetic Devices or Brace: No Transfers Transfer Destination Chair Transfer Technique ambulated Transfer Ability Level of Assist Independent,Use of Upper Extremities Comments Mobility Comments pt supine in bed and agreeable to do PT. obtained PLOF and home set up from pt. pt completed supine to sit mod I. able to sit on EOB mod I. completed sit to stand mod I and ambulated in room without AD SBA ~ 40 ft. pt can be impulsive and cued to slow down. presents with unsteady gait but pt stated that she normally uses her shoes with orthotics on due to her previous ankle surgery affecting her balance/walking. pt sat on the chair. agreed to do stairs. pt stated that she only has small steps at home and can hold on to edge of door for support. pt completed sit to stand from chair mod I. ambulated towards step stool and completed up/down SBA holding on ot L side wall on first set and repeated again using R side wall. pt with slight LOB descending but able to recover on first attempt but without LOB on 2nd attempt. cued pt to slow down. pt agreed to stay up on the chair. positioned pt on the chair call light and table placed within reach. Gait Assessment Gait Gait Assistance Required: Standby Assistance Distance (Feet) 40 Able to Maintain Weight Bearing Status Yes During Gait Assistive Devices Assistive Device None,Gait Belt Orthotic/Prosthetic Devices or Brace: No Gait Deviations General Gait Pattern Antalgic Factors Limiting Gait Function Factors Limiting Gait Function Poor Safety Awareness Stair Climbing Assessment Evaluation Level of Assist On Stairs Standby Assistance Devices Stair Climbing Assistive Devices Left Railing Technique/Endurance Stair Climbing Direction Ascend and Descend Stair Climbing Technique Step to Step Number of Steps Climbed 1 Query Text: Stair Climbing Set # Repetitions (reps) 2 PT-Balance Assessment Sitting Balance and Reactions Static Sitting Balance Ability Normal Dynamic Sitting Balance Ability Normal Standing Balance and Reactions Static Standing Balance Ability Good Dynamic Standing Balance Ability Fair Device Used without AD M5 PT-IP Objective Assessments Start: 08/04/23 12:14 Freq: NEEDED Status: Active Protocol: Document 08/04/23 10:45 AB (Rec: 08/04/23 12:26 AB [id number]) Orientation Orientation/Cognition Level of Alertness Alert Orientation Name,Age,Place,Situation Safety Awareness Decreased Safety Awareness Memory Description No Deficits Noted Gross Range of Motion Lower Extremity ROM Assessment Within Functional Limits Strength Lower Extremity Strength Assessment Within Functional Limits Sensation Assessment Sensation Gross Sensation WNL Muscle Tone Muscle Tone WNL Yes M6 PT-IP Treatment Start: 08/04/23 12:14 Freq: NEEDED Status: Active Protocol: Document 08/04/23 10:45 AB (Rec: 08/04/23 12:26 AB [id number]) Physical Therapy Treatment Education Education Provided Safety M7 PT-IP Assessment and Plan Start: 08/04/23 12:14 Freq: NEEDED Status: Active Protocol: Document 08/04/23 10:45 AB (Rec: 08/04/23 12:26 AB [id number]) PT Summary Assessment and Plan Potential Rehabilitation Potential Fair Status of Condition at Evaluation Stable Summary Impairments Pain,ROM,Strength,Balance, Coordination,Sensation,Tone, Cognition,Bed Mobility, Transfers,Gait,Activity Tolerance Assessment Summary pt is an 88 y/o F who presented to the ED due to speech/word finding difficulty . pt admitted for TIA; r/o CVA. pt requiring mod I with bed mobility and SBA for transfers and ambulation without AD for safety. pt lives with spouse and spouse will be able to assist if needed. No further PT intervention indicated at this time. pt can go home when medically stable. Frequency of Treatment Frequency Of Treatment Discharge Recommendations To Nursing Amount of Assist Needed Standby Assistance Discharge Recommendations PT Discharge Recommendations Home Transportation Needs at Discharge Private Vehicle
[2023-08-04] MEDS: LORazepam 1 MG TABLET PO (11:00)
--- NOTE | 2023-08-04 11:38 | ST.IPCSEOM ---
Visit Care Team Role Provider Type Karin Navarro MD Referring Provider Physician Specialty: Emergency Medicine Address: [address] [place] [address], [address] Email: [email or web address] Susan Wyman DO Primary Care Provider Physician Specialty: Medical Address: [address] [place] [address], [address], [place], [address] Email: [email or web address] Esperanza Brown DO Emergency Provider Physician Specialty: Emergency Medicine Address: [address] [place] [address], [id number] Email: [email or web address] Jaime [email or web address] DO Admit Provider Physician Attending Provider Specialty: Internal Medicine Address: [address] [place] [address], [address] Email: [email or web address] Current Diagnoses Type 2 diabetes mellitus with diabetic neuropathic arthropathy (08/03/23) Aphasia (08/03/23) Speech-Language Pathology Swallow Evaluation 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 Susan Alvarez Reason for Referral Possible CVA/TIA Setting Assessment Location Acute Care Visit Type Note Type Initial evaluation Patient Information Identification Type Name,Wristband History Per H&P: States that today around 10am she started to have difficulty speaking, she wanted to talk about her clothes and how she could adjust the seam to have it fit better but could not get the words coming out to make sense . [place] that her thinking was clear, no focal deficits, no headache, no vision changes. This lasted about 30 minutes to an hour then resolved. She presented today as she had a similiar episode about 2 weeks ago that was worse, lasted at least an hour before resolving, and felt that with 2 episodes she may have had a TIA. Her son had a stroke at 42 yrs old, maternal aunts had strokes and thus she expresses that she is aware of the signs. Notes that she had anxiety associated with MRI and claustrophobia. Was able to tolerate previous MRI for Leonard 's palsy with Valium. Endorses taking all medications as prescribed. Feels that her BP and BG are well controlled at home. Expresses anxiety and asks many good questions regarding statin therapy and benefit. Evaluated in ED, found to have NIHSS of 1 with chronic left facial droop. ASA 325mg administered. CT/CTA head neck without acute process. ST referred for ST evaluation d/t Pt with possible TIA/CVA in order to determine safest diet. Subjective Observations Pt sitting upright in bed requesting breakfast. ST educated Pt on ST role and reason for evaluation. Pt compliant. Pt awake, alert, Ox3 and able to sit upright in bed for PO trials. Reported by Patient/Caregiver Pain/Discomfort No Current Diet NPO Baseline Feeding Method Independent in self-feeding The IDDSI Framework Protocol: IDDSI.1 Objective Assessment Mental Status Alert,Responsive,Cooperative Oral Integrity WFL Comment Oral motor exam revealed natural dentition, good condition. Slight left sided weakness d/t hx of [place] Palsy . Food and Liquid Trials Position During Assessment Upright (90 degrees) Liquids Trialed Thin (IDDSI 0) Solid Trials Soft & Bite-sized (IDDSI 6), Regular (IDDSI 7) Administration Type Straw,Self-feeding Oral Impairment Mildly impaired Oral Phase Comments Pt consumed domitila crackers and chewy oatmeal bar with 8 oz of thin water via straw. For reg solids and soft solids Pt demonstrated adequate bite size, prolonged mastication however adequate bolus formation and control, extended ap transport, minimal oral stasis. For thin water via straw Pt exhibited adequate suction, good oral acceptance and containment. Pharyngeal Impairment Within functional limits Pharyngeal Phase Comments No overt s/s of aspiration with all PO trials, clear vocal quality, no reports of food feeling stuck in throat. Fatigue/Endurance Endurance WNL The IDDSI Framework Protocol: IDDSI.1 Findings Swallowing Function Oropharyngeal phase dysphagia Severity of Swallow Impairment Mildly impaired Contributing Factors to Swallow Mastication inefficiency Impairment Prognosis Good Based on Cognitive status Comment Pt presents with mild oral phase dysphagia and suspected WFL pharyngeal phase dysphagia d/t prolonged mastication with solids, however adequate bolus formation and control Impact on Safety and Functioning No limitations Recommendations Instrumental Assessment No Swallowing Treatment No Recommended Solids Regular (IDDSI 7) Recommended Liquids Thin (IDDSI 0) Safety Precautions/Swallowing Remain upright (90 degrees) Recommendations during all oral intake,Upright position at least 30 minutes after meals,Small bites and sips when eating,Slow rate; swallow between bites, Alternate liquids and solids Medication Recommendations As Tolerated Education Patient/Caregiver Education Described results of evaluation,Patient expressed understanding of evaluation
[2023-08-04 11:48] VITALS: BP 126/59; PULSE 84; RESP 16; TEMP 36.2; O2SAT 97
--- NOTE | 2023-08-04 13:58 | OT.IPNOTE ---
Ot eval and treat order received. Chart reviewed and nursing consulted. Discussed with pt and pt states that she is at her baseline for mobility and ADLs. Pt states no needs. Will discharge order.
--- NOTE | 2023-08-04 14:34 | CM.DANOTE ---
Patient is an 88 yo female who was admitted on 08/03/23 for TIA vs CVA r/o. Pt has [facility] and [employer] for insurance and her PCP is Susan Wyman. EMR was reviewed. Per , pt with a hx of familial strokes and admitted for CVA r/o and to have MRI and PT/OT/ST. Per PT/OT, pt back to baseline and somewhat impulsive but recommending home at discharge. MRI results negative. SW met bedside with pt and explained role and she confirms she lives in [place] with her and is mostly independent with ADLs at baseline and does not typically use DME for ambulation but does have special orthotic shoes at home that help with balance. Pt denies any recent hx of HH or SNF and confirms her is her DPOA. Pt does not anticipate any discharge needs and preference is to discharge home with spouse today. Plan: SW to follow for likely discharge home this afternoon/evening now that MRI results are back and outpt f/u and no further SW needs at this time. MELISA Linares Discharge Planning/Care Management CM Discharge Assessment Start: 08/04/23 14:29 Freq: Status: Active Protocol: Document 08/04/23 14:31 BF (Rec: 08/04/23 14:32 BF [id number]) Discharge Planning Assessment Assigned Football Pad Repairer MELISA Lambert DPOA/Assigned Designee Name spouse Francisco Contact Information [phone] Advance Directives? Yes Advance Directives on File Yes History Provided By Patient,Significant Other, Medical Record Has Patient been admitted in last 30 No days? Prior Living Arrangements House Household Members spouse Type of transporation used prior to Drives own vehicle admit Independent with ADL's Yes Is patient alert and oriented? Yes Caregiver for Another No DME Already Rented / Owned Cane Barriers to Discharge No Discharge Plan Home Transportation Arrangement likely spouse to transport at d/c Referrals Initiated None needed Whiteboard Updated in Patient Room with Yes name and ext. # of Football Pad Repairer Review Status In Process Please Provide Date Initial DC 08/04/23 Assessment Was Performed Next Review Type Continued Stay Review
[2023-08-04 15:00] VITALS: BP 135/65; PULSE 73; RESP 16; TEMP 36.4; O2SAT 97
--- NOTE | 2023-08-04 17:05 | PM.PN.1 ---
Subjective Subjective Interval history: Admitted with transient aphasia, resolved. Exam Vital Signs (past 8 hours): - 08/04/23 11:48 Temperature 97.1 F L Pulse Rate 84 Respiratory Rate 16 Blood Pressure 126/59 L Pulse Oximetry 97 Oxygen Flow Rate 0 Oxygen Delivery Method Room Air Oxygen Flow Rate 0 Narrative Exam Narrative: NAD, alert and oriented. Fluent speech. Lungs are clear, normal rate and effort. Heart is regular, no murmur gallop or rub. Abdomen is soft, non distended. Extremities are free of edema. Normal speech, normal strength of arms and legs. No facial droop. Objective Imaging CT scan - head: Radiologist's impression: CT brain unremarkable CTA reveals some calcifications of the carotid bulbs with 50% stenosis of the right ICA and less than 50 of the left ICA. There is a high-grade stenosis at the left vertebral artery origin. Labs 08/03/23 20:27 08/03/23 20:27 Labs: Laboratory Results - last 24 hr 08/03/23 08/03/23 16:31 20:27 WBC 7.9 RBC 4.28 Hgb 12.4 Hct 37.4 MCV 87.4 MCH 29.0 MCHC 33.1 RDW 13.6 Plt Count 374 Neut % (Auto) 53.7 Lymph % (Auto) 27.8 [place] % (Auto) 11.1 Eos % (Auto) 5.9 H Baso % (Auto) 1.5 Neut # (Auto) 4200 Lymph # (Auto) 2200 [place] # (Auto) 900 Eos # (Auto) 500 H Baso # (Auto) 100 Sodium 137 138 Potassium 3.8 3.7 Chloride 101 103 Carbon Dioxide 28 28 BUN 19 H 18 H Creatinine 0.71 0.74 Estimated GFR > 60 > 60 BUN/Creatinine Ratio 26.8 H 24.3 H Glucose 149 H 147 H Hemoglobin A1c 7.4 H Calcium 10.0 9.8 Total Bilirubin 0.4 AST 41 H ALT 43 H Alkaline Phosphatase 68 Total Creatine Kinase 40 Troponin I < 0.012 Total Protein 7.6 Albumin 4.0 Globulin 3.6 Albumin/Globulin Ratio 1.1 Triglycerides 156 H Cholesterol 200 H LDL Cholesterol, Calc 130 H HDL Cholesterol 39 L Lipase 197 TSH 1.27 PFSH Social History household members: spouse Smoking Status: Never smoker alcohol intake: current substance use type: does not use Assessment & Plan Assessment & Plan narrative: 1. TIA with transient aphasia, present on admission resolved. MRI is negative. -continue the dual antiplatelet therapy and high-dose statin. 2. Fatigue after lorazepam for MRI, new and active. -continue to observe overnight, anticipate discharge tomorrow if there is no new neurologic symptoms overnight. 3. Hypertension, hold home medications until tomorrow for permissive hypertension. Anticipate discharge home on August 04 if she has improved weakness and no other neurologic symptoms. Quality Stroke Contraindication Not Initiating IV-Tpa: Not indicated Onset of Symptoms Date: 08/03/23 VTE Deep Vein Thrombosis/Pulmonary Embolism Present on Admission: No
[2023-08-04] MEDS: CLOPIDOGREL 75 MG TABLET PO (17:23)
[2023-08-04 20:00] VITALS: BP 116/54; PULSE 76; RESP 16; TEMP 36.8; O2SAT 98
[2023-08-04] MEDS: ATORVASTATIN 20 MG TABLET 80 MG PO (21:33)
[2023-08-05 00:10] VITALS: BP 132/63; PULSE 77; RESP 16; TEMP 36.3; O2SAT 97
[2023-08-05 04:30] VITALS: BP 142/61; PULSE 75; RESP 16; TEMP 36.1; O2SAT 98
[2023-08-05 08:00] VITALS: BP 130/73; PULSE 80; RESP 16; TEMP 36.3; O2SAT 99
[2023-08-05] MEDS: INSULIN LISPRO 100 UNIT/ML 3ML VIAL SUBCUT (09:07)
[2023-08-05] MEDS: ASPIRIN EC 81 MG TABLET PO (09:15)
[2023-08-05] MEDS: CLOPIDOGREL 75 MG TABLET PO (09:15)
--- NOTE | 2023-08-05 09:15 | P.DS_ITS ---
History of Present Illness History of Present Illness Chief complaint: thinks has had some tia's Narrative: States that today around 10am she started to have difficulty speaking, she wanted to talk about her clothes and how she could adjust the seam to have it fit better but could not get the words coming out to make sense. [place] that her thinking was clear, no focal deficits, no headache, no vision changes. This lasted about 30 minutes to an hour then resolved. She presented today as she had a similiar episode about 2 weeks ago that was worse, lasted at least an hour before resolving, and felt that with 2 episodes she may have had a TIA. Her son had a stroke at 42 yrs old, maternal aunts had strokes and thus she expresses that she is aware of the signs. Notes that she had anxiety associated with MRI and claustrophobia. 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 Endorses taking all medications as prescribed. Feels that her BP and BG are well controlled at home. Expresses anxiety and asks many good questions regarding statin therapy and benefit. Evaluated in ED, found to have NIHSS of 1 with chronic left facial droop. ASA 325mg administered. CT/CTA head neck without acute process. Discharge Providers Provider Date of admission: 08/03/23 18:54 Discharge Date: 08/05/23 Primary care physician: Susan Wyman DO Consults: 08/03/23 19:44 Consult to Discharge Planning Routine Comment: Consult to Occupational Therapy Evaluate & Treat Comment: Physician Instructions: Evaluate and treat Consult to Physical Therapy Evaluate & Treat Comment: Physician Instructions: Evaluate and Treat Consult to Speech Therapy Evaluate & Treat Comment: Physician Instructions: Evaluate and treat Discharge provider: Patel Contreras MD Summary Hospital Course Discharge Diagnosis: 1. TIA with transient aphasia, present on admission resolved. MRI is negative. -continue the dual antiplatelet therapy and high-dose statin. 2. Fatigue after lorazepam for MRI, new and active. 3. Hypertension, held home medications until tomorrow for permissive hypertension. Hospital Course: She was admitted with TIA symptoms. She has had 2 episodes of over 2 weeks with identical symptoms of expressive aphasia and word salad. CT angiogram revealed some cerebrovascular disease. The patient did not have critical carotid disease. She did have a significantly diseased vertebral artery. The patient was treated with dual antiplatelet therapy and had a negative MRI. She had no neurologic symptoms in the day of discharge she will be discharged on 20/05 days of dual antiplatelet therapy and then need to resume monotherapy with aspirin. She had been on aspirin in the past but had discontinued that recently based on medical advice. She will be on a high dose statin in his asked to see her primary, Sonia wyman within the next 6 days. She was also advised to call 911 for stroke symptoms. She has a piece of paper in her wallet indicating written permission for thrombolytics in the setting of acute stroke. Status at Discharge Cognitive/behavioral status at discharge: oriented Functional status at discharge: independent ambulation Overall status at discharge: patient is back to baseline Time Spent with Patient Time spent: Greater than 30 minutes Exam Vital Signs (past 8 hours): - 08/05/23 04:30 Temperature 97.0 F L Pulse Rate 75 Respiratory Rate 16 Blood Pressure 142/61 H Pulse Oximetry 98 Oxygen Flow Rate 0 Oxygen Delivery Method Room Air Oxygen Flow Rate 0 Narrative Exam Narrative: NAD, alert and oriented. Fluent speech. Lungs are clear, normal rate and effort. Heart is regular, no murmur gallop or rub. Abdomen is soft, non distended. Extremities are free of edema. Normal speech, normal cranial nerves. Normal motor strength of arms and legs, normal gait. Objective ECG Impression: TELE: NSR. Imaging CT scan - head: Radiologist's impression: CT scan - head: Radiologist's impression: CT brain unremarkable CTA reveals some calcifications of the carotid bulbs with 50% stenosis of the right ICA and less than 50 of the left ICA. There is a high-grade stenosis at the left vertebral artery origin. MRI - head: Radiologist's impression: No acute CVA. Labs 08/03/23 20:27 08/03/23 20:27 [facility] Social History household members: spouse Smoking Status: Never smoker alcohol intake: current substance use type: does not use Discharge Assessment & Plan Assessment and Plan Assessment: 1. TIA with transient aphasia, present on admission resolved. MRI is negative. -continue the dual antiplatelet therapy and high-dose statin. 2. Fatigue after lorazepam for MRI, new and active. -related to Ativan for MRI, improved after observation. 3. Hypertension, resume home meds at discharge. Plan of Treatment: Discharge home on dual antiplatelet therapy 21 days, then aspirin monotherapy. Continue high-dose statin, PCP follow up with Sonia wyman within 6 days. 911 for neurologic symptoms. Discharge Plan Discharge Plan Patient Disposition: Home Discharge orders & Medications Prescriptions: New atorvastatin 20 mg Tablet 80 mg PO BEDTIME Qty: 30 2RF clopidogrel 75 mg Tablet 75 mg PO DAILY Qty: 30 2RF aspirin 81 mg Tablet,Delayed Release (Dr/Ec) 81 mg PO DAILY Qty: 30 2RF Continued hydrochlorothiazide 12.5 mg tablet 12.5 mg PO DAILY Qty: 90 0RF metformin 500 mg tablet 500 mg PO BID losartan 50 mg tablet 50 mg PO DAILY levothyroxine 112 mcg tablet 112 mcg PO DAILY Medication counseling provided by Pharmacist: No Follow up/Referrals: Susan Wyman DO [Primary Care Provider] - Discharge Health Status Multidrug resistant organism: No MDRO Diet/Activity/Treatments Diet: Low-cholesterol Visit Report/Discharge Packet Stand Alone Forms: Patient Portal/API, Stroke Signs & Symptoms Discharge Data Primary Care Provider: Susan Wyman Attending Provider: Jaime Maldonado Admit Date/Time: 08/03/23 18:54 Quality Stroke Contraindication Not Initiating IV-Tpa: Not indicated Onset of Symptoms Date: 08/03/23 VTE Deep Vein Thrombosis/Pulmonary Embolism Present on Admission: No
[2023-08-05] MEDS: ENOXAPARIN 40 MG/0.4 ML SYRINGE SUBCUT (09:16)
--- NOTE | 2023-08-05 11:47 | CM.DPC ---
DCP Cont. Reviewed EMR and team rounds for status updates. Pt has been medically cleared for d/c home. Family will transport, no further DCP needs indicated at this time.
--- NOTE | 2023-08-05 12:52 | PC.NURSE ---
Pt discharged home at 1200, escorted off floor in wheelchair accompanied by spouse and hospital staff. IV removed, tele d/c'd, discharge teaching provided including worsening symptoms, new medications, and follow up appointments. Questions answered and concerns addressed. Patient left the floor with all belongings.
== END 2023-08-05 12:00 | disposition home or self-care (01) ==
LOC: ED 18:11 → AC 18:55
PROVIDERS: Internal Medicine; Admitting Provider Internal Medicine; Emergency Provider Emergency Medicine; PCP Family Medicine; Referring Provider Emergency Medicine; Visit Provider Internal Medicine
DX: G45.9 Transient cerebral ischemic attack, unspecified (principal); R47.02 Dysphasia; R29.701 NIHSS score 1; G51.0 Bell's palsy; I10 Essential (primary) hypertension; E11.9 Type 2 diabetes mellitus without complications; Z79.84 Long term (current) use of oral hypoglycemic drugs
CPT/HCPCS: 36415; 70450; 70496; 70498; 70551; 71045; 80048; 80053; 80061; 82550; 82962; 83036; 83690; 84443; 84484; 85025; 92610; 93005; 93010; 96372; 97161; 99284; G0378; J1650; J1815; Q9967

== ENCOUNTER → 2024-08-14 09:31 | Outpatient (CLI) | payer MEDICARE, SELFPAY ==
[2023-08-03 20:02] VITALS: BMI 25.9
[2024-08-14 10:14] LABS: Hemoglobin A1C% w Est Avg Glu 7.1 % (4.0-6.0)
[2024-08-14 10:17] LABS: Cholesterol 101 mg/dL (140-199); HDL Cholesterol 47 mg/dL (40-60); LDL Cholesterol Calculated 28 mg/dL (<100); Triglycerides 131 mg/dL (35-150)
[2024-08-15 04:08] LABS: CRP, High Sensitivity 1.94 mg/L (0.00-3.00)
== END ==
PROVIDERS: PCP Family Medicine; Referring Provider Family Medicine; Visit Provider Family Medicine
DX: E11.618 Type 2 diabetes mellitus with other diabetic arthropathy (principal); R74.01 Elevation of levels of liver transaminase levels; I10 Essential (primary) hypertension; E03.9 Hypothyroidism, unspecified
CPT/HCPCS: 36415; 80061; 83036; 86140

== ENCOUNTER → 2025-02-19 09:13 | Outpatient (CLI) | payer MEDICARE, SELFPAY ==
[2023-08-03 20:02] VITALS: BMI 25.9
[2025-02-19 09:51] LABS: Hemoglobin A1C% w Est Avg Glu 7.0 % (4.0-6.0)
[2025-02-19 10:30] LABS: TSH w/ Reflex to FT4 1.06 uIU/mL (0.47-4.68)
== END ==
PROVIDERS: PCP Family Medicine; Referring Provider Family Medicine; Visit Provider Family Medicine
DX: E11.9 Type 2 diabetes mellitus without complications (principal); E03.9 Hypothyroidism, unspecified
CPT/HCPCS: 36415; 83036; 84443